=== PATIENT | male | born 1975 | race Asian ===

== ENCOUNTER 2022-12-17 05:48 | Emergency (ER) | payer OTHER ==
[~2022-12-17] VITALS: Ht 177.8 cm; Wt 95.3 kg
== END 2022-12-17 06:40 | disposition home or self-care (01) ==
LOC: ED 05:48
DX: J01.80 Other acute sinusitis (principal); Z86.79 Personal history of other diseases of the circulatory system; F17.210 Nicotine dependence, cigarettes, uncomplicated
CPT/HCPCS: 96372; 99282; J0696; J1100